=== PATIENT | male | born 1985 | race Caucasian/White ===

== ENCOUNTER 2019-09-15 11:03 | Emergency (ER) | payer BC ==
[~2019-09-15] VITALS: Ht 182.8 cm; Wt 83.9 kg
[~2019-09-15 11:03] MED LIST: MEDROL DOSEPAK4 MG PO
[2019-09-15] MEDS ORDERED: AMOXICILLIN500 M2 PO (11:52)
== END 2019-09-15 18:51 | disposition home or self-care (01) ==
LOC: ED 11:03
DX: J02.9 Acute pharyngitis, unspecified (principal)